=== PATIENT | female | born 1980 | race Caucasian/White ===

== ENCOUNTER → 2016-09-27 | Outpatient (CLI) | payer BC ==
[2015-10-29 15:11] VITALS: BP 128/82
--- NOTE | 2016-09-27 15:39 | RAD ---
HISTORY: Cough and shortness of breath Study: PA and lateral views of the chest. Comparison: None. Findings: The cardiomediastinal silhouette is normal. No focal consolidations, pleural effusions or pneumothor ax. Osseous structures demonstrate no acute abnormality. IMPRESSION: 1. No acute cardiopulmonary process. Reported By:
== END ==
LOC: RAD 14:18
PROVIDERS: ATTEND Nurse Practitioner Family
DX: R06.02 Shortness of breath (principal); J20.9 Acute bronchitis, unspecified
CPT/HCPCS: 71020

== ENCOUNTER → 2016-10-24 | Outpatient (CLI) | payer BC ==
[2015-10-29 15:11] VITALS: BP 128/82
--- NOTE | 2016-10-25 11:16 | RAD ---
HISTORY: Dyskinesia of the esophagus Study: Barium swallow Comparison: None Technique: Multiple fluoroscopic images of the esophagus were obtained during the administration of oral barium. Findings: The swallowing mechanism is grossly unremarkable. The thoracic esophagus demonstrates mild dysmotili ty with a few tertiary contractions, without evidence for extrinsic or intrinsic mass lesion. There is a small sliding hiatal hernia. Reflux to the midesophagus was observed with the patient supine. The patient swallowed a 12.5 mm barium tablet without issue and it passed into the stomach without s ignificant delay. The total fluoroscopy time utilized was 2:31 minutes. IMPRESSION: 1. Small hiatal hernia with moderate gastroesophageal reflux 2. Mild esophageal dysmotility Reported By:
== END | disposition home or self-care (01) | DRG 392 ==
LOC: RAD 08:53
PROVIDERS: ATTEND Nurse Practitioner Family
DX: K22.4 Dyskinesia of esophagus (principal); R10.13 Epigastric pain; K21.0 Gastro-esophageal reflux disease with esophagitis; R11.2 Nausea with vomiting, unspecified; K44.9 Diaphragmatic hernia without obstruction or gangrene
CPT/HCPCS: 70370